=== PATIENT | male | born 1960 | race American Indian/Alaskan Native ===

== ENCOUNTER 2023-08-03 09:30 | Emergency (ER) | payer OTHER ==
[~2023-08-03] VITALS: Ht 177.8 cm; Wt 119.9 kg
[2023-08-03 10:14] LABS: BILIRUBIN,URINE NEGATIVE (Neg); CLARITY,URINE SLIGHTLY CLOUDY (Clear); COLOR,URINE YELLOW (Yellow); GLUCOSE, URINE 100 mg/dl (Neg); KETONES,URINE NEGATIVE (Neg); LEUKOCYTE ESTERASE ,URINE NEGATIVE (Neg); NITRITES, URINE NEGATIVE (Neg); OCCULT BLOOD,URINE NEGATIVE (Neg); PROTEIN,URINE NEGATIVE (Neg)
[2023-08-03 10:21] LABS: UA COLLECTION TYPE VOIDED
[2023-08-03 10:22] LABS: MUCUS STRANDS FEW /LPF (Neg); SQUAMOUS EPITHELIAL CELL,UR FEW /LPF (FEW)
[2023-08-03 10:23] LABS: BACTERIA,URINE FEW /HPF (Neg); RBC,URINE 0-2 /HPF (0-2); WBC,URINE 0-4 /HPF (0-4)
[2023-08-03 10:25] LABS: ALANINE AMINOTRANSFERASE 16 U/L (12-78); ALBUMIN 3.8 G/DL (3.4-5.0); ALKALINE PHOSPHATASE 69 IU/L (46-116); ANION GAP 9 (8-16); ASPARTATE AMINO TRANSFERASE 13 U/L (10-37); BILIRUBIN,TOTAL 0.7 MG/DL (0.1-1.0); BLOOD UREA NITROGEN 9 MG/DL (7-18); BUN/CREATININE RATIO 9.1 (10.0-20.0); CALCIUM 8.7 MG/DL (8.5-10.1); CHLORIDE 101 MMOL/L (99-107); CREATININE 0.99 MG/DL (0.60-1.10); GLUCOSE 157 MG/DL (70-104); POTASSIUM 3.7 MMOL/L (3.5-5.1); SODIUM 135 MMOL/L (135-145); TOTAL CARBON DIOXIDE 24.7 MMOL/L (24-32); TOTAL PROTEIN 7.7 G/DL (6.4-8.2); eCRCL 82 ML/MIN; eGFR 77 ML/MIN
[2023-08-03 10:27] LABS: BASOPHILS # (AUTO) 0.1 X10'3 (0-0.2); BASOPHILS % (AUTO) 0.4 % (0-1); EOSINOPHILS % (AUTO) 0.4 % (0-6); HEMATOCRIT 51.9 % (42.0-52.0); HEMOGLOBIN 17.3 g/dl (14.0-17.9); LYMPHOCYTES # (AUTO) 1.9 X10'3 (1.1-4.8); LYMPHOCYTES % (AUTO) 13.6 % (21-51); MEAN CORPUSCULAR HEMOGLOBIN 27.9 PG (27.0-31.0); MEAN CORPUSCULAR HGB CONC 33.3 g/dL (33.0-36.5); MEAN CORPUSCULAR VOLUME 83.8 FL (78-98); MEAN PLATELET VOLUME 9.5 FL (7.4-10.4); MONOCYTES # (AUTO) 0.8 X10'3 (0-0.9); MONOCYTES % (AUTO) 5.6 % (2-12); NEUTROPHILS # (AUTO) 11.3 X10'3 (1.8-7.7); PLATELET COUNT 256 X10'3 (140-440); RED BLOOD COUNT 6.19 X10'6 (4.70-6.10); RED CELL DISTRIBUTION WIDTH 14.3 % (11.5-14.5); WHITE BLOOD COUNT 14.1 X10'3 (4.5-11.0)
[2023-08-03 10:32] LABS: LIPASE > 375 U/L (16-77)
[2023-08-03] MEDS ORDERED: iohexol 300mg/ml 100ml inj. ONE (11:59)
[2023-08-03] MEDS ORDERED: acetaminophen 325mg tablet PO ONE ×2 (12:00→12:50)
[2023-08-03] MEDS ORDERED: ketorolac tromethamine 15mg/ml inj. IV ONE (12:00)
--- NOTE | 2023-08-03 13:39 | NUR ---
dr. salcedo, at bedside.
[2023-08-03 14:11] VITALS: BP 132/92; PULSE 91; RESP 18; TEMP 97.7; O2SAT 95
== END 2023-08-03 14:28 | disposition home or self-care (01) ==
LOC: ER 09:30
DX: B34.9 Viral infection, unspecified (principal); R09.81 Nasal congestion; M79.10 Myalgia, unspecified site; I10 Essential (primary) hypertension; E11.9 Type 2 diabetes mellitus without complications
CPT/HCPCS: 36415; 71045; 74177; 80053; 81001; 83690; 84484; 85025; 93005; 96374; 99285; J1885; J3490; Q9967

== ENCOUNTER 2025-06-22 14:42 | Emergency (ER) | payer BC, OTHER ==
[~2025-06-22] VITALS: Ht 177.8 cm; Wt 110.0 kg
[2025-06-22 14:48] VITALS: BP 160/94; PULSE 80; RESP 16; TEMP 97.2; O2SAT 97
--- NOTE | 2025-06-22 14:53 | Physician Documentation ---
History of Present Illness ~ Chief Complaint: Mechanical Fall Stated Complaint: FALL Time Seen by MD: 14:51 Primary Medical Doctor: NILAM Source: patient Mode of Arrival: POV Exam Limitations: no limitations HPI 64-year-old male had mechanical ground level fall where he landed on his face and has bruising to both eyes has a subconjunctival hemorrhage to the inner aspect of the left eye. No visual changes currently but he has had a headache since the fall as well as body pain and neck pain. The fall occurred 4 days ago. Patient is not on blood thinners and did not lose consciousness status post fall Tetanus within 5 Years?: No Medication Reconciliation Allergies: Coded Allergies: No Known Allergies (Unverified , 06/22/25) Past Medical History Past Medical History: No Pertinent History Review of Systems All Other Systems at this time: Reviewed and Negative Integumentary: Reports: see HPI Physical Exam Vital Signs: RN Vital Signs have been reviewed: Yes, Temperature: 97.2, Source: Temporal, Heart Rate: 80, Respiratory Rate: 16, BP: 160/94, Pulse Oximetry: 97, Weight: 110.000 Oxygen Flow Rate: 0 Physical Exam General: Alert, no apparent distress. HEENT: Abrasion and periorbital swelling to both eyes bilaterally the abrasion more on the left eye with subconjunctival hematoma to the inner aspect of the left eye PERRLA smooth EOM Neck: Full range of motion. Real cervical spine tenderness full range of motion Respiratory: No respiratory distress speaking in full sentences Chest: No accessory muscle use. Cardiovascular: Appears well perfused Neurologic: Oriented x4. Psychiatric: Normal mood and affect. Skin: Normal color, warm and dry. No edema, no ecchymosis. Progress Results/Orders Results/Orders Orders - RUTH PEÑA OPERATOR PREFINISH Ct Cervical Spine (06/22/25 15:49) Ct Head (06/22/25 15:48) Completed Orders - RUTH PEÑA NP Ct Cervical Spine (06/22/25 15:49) Ct Head (06/22/25 15:48) Vital Signs 06/22/25 14:48 Temp 97.2 Pulse 80 Resp 16 B/P (MAP) 160/94 Pulse Ox 97 O2 Flow Rate 0 EKG/XRAY/CT/US/VASC/MRI CT #1: Impression Indication: Fall hit face headache since fall Technique: CT axial images of the cervical spine are obtained without contrast. Coronal and sagittal reformats were obtained. Radiation Dose Information: CTDI volume is 25.2 mGy. Dose-length product is 555 mGy*cm Comparison: None FINDINGS: The cervical vertebral body heights are maintained. Straightening of normal cervical spine curvature. There is moderate to severe disc space narrowing. No prevertebral edema. Facet articulations demonstrate moderate to severe facet hyp ertrophic changes . The atlantooccipital, atlantoaxial articulations are intact. IMPRESSION: Moderate to severe cervical degenerative disc disease. #2: Impression CLINICAL HISTORY: Fall hit face headache since fall TECHNIQUE: Helical scanning was performed of the head from the skull base to the vertex. Multiplanar reconstructions were performed. This exam was performed according to our departmental dose optimization program. Up-to-date CT equipment and radiation dose reduction techniques are utilized as appropriate. CTDI 69 DLP 1265 COMPARISON: None FINDINGS: There is no evidence for acute intracranial hemorrhage, acute ischemic changes, mass, mass effect, or extra-axial fluid collection. There is no hydrocephalus or midline shift. There is no effacement of the cerebral sulci and basal subarachnoid cisterns. The ledesma-white matter differentiation is well maintained. The imaged paranasal sinuses are clear. IMPRESSION: NO ACUTE INTRACRANIAL ABNORMALITY SEEN. Medical Decision Making Findings Patient has been evaluated by primary care they evaluated his eyes but due to him having a headache that has continued since his fall without blood thinners or syncope a CT of his head and cervical spine has been ordered. Negative for any acute processes. Patient discharged home Departure Time of Disposition: 16:21 Disposition: 01 HOME / SELF CARE / HOMELESS Impression: Primary Impression: Fall Condition: Stable Discharge Instructions: Fall Prevention in the Home, Adult, [id number] Additional Instructions: Order cervical spine CT shows some degenerative changes which is like arthritis but no acute fractures. Your head CT was negative for any bleeding. Follow up with primary care you can take Tylenol ibuprofen as needed for headaches. Rest and stay well hydrated Referrals: NO PRIMARY CARE PROVIDER (PCP) Education Educated: Patient Educated regarding: diagnosis, treatment, need for follow up Signature Scribe Signature: No scribe Attestation: The note accurately reflects work and decisions made by me.Ruth KLEIN 06/22/25 14:57 RUTH PEÑA NP Jun 22, 2025 14:53
--- NOTE | 2025-06-22 16:09 | RADIOLOGY REPORT ---
CLINICAL HISTORY: Fall hit face headache since fall TECHNIQUE: Helical scanning was performed of the head from the skull base to the vertex. Multiplanar reconstructions were performed. This exam was performed according to our departmental dose optimization program. Up-to-date CT equipment and radiation dose reduction techniques are utilized as appropriate. CTDI 69 DLP 1265 COMPARISON: None FINDINGS: There is no evidence for acute intracranial hemorrhage, acute ischemic changes, mass, mass effect, or extra-axial fluid collection. There is no hydrocephalus or midline shift. There is no effacement of the cerebral sulci and basal subarachnoid cisterns. The ledesma-white matter differentiation is well maintained. The imaged paranasal sinuses are clear. IMPRESSION: NO ACUTE INTRACRANIAL ABNORMALITY SEEN.
--- NOTE | 2025-06-22 16:16 | RADIOLOGY REPORT ---
Indication: Fall hit face headache since fall Technique: CT axial images of the cervical spine are obtained without contrast. Coronal and sagittal reformats were obtained. Radiation Dose Information: CTDI volume is 25.2 mGy. Dose-length product is 555 mGy*cm Comparison: None FINDINGS: The cervical vertebral body heights are maintained. Straightening of normal cervical spine curvature. There is moderate to severe disc space narrowing. No prevertebral edema. Facet articulations demonstrate moderate to severe facet hypertrophic changes . The atlantooccipital, atlantoaxial articulations are intact. IMPRESSION: Moderate to severe cervical degenerative disc disease.
== END 2025-06-22 16:35 | disposition home or self-care (01) ==
LOC: ER 14:43
DX: S05.12XA Contusion of eyeball and orbital tissues, left eye, initial encounter (principal); W18.30XA Fall on same level, unspecified, initial encounter; Y93.89 Activity, other specified; Y92.89 Other specified places as the place of occurrence of the external cause; Y99.8 Other external cause status
CPT/HCPCS: 70450; 72125; 99284